=== PATIENT | female | born 1955 | race Caucasian/White ===

== ENCOUNTER → 2017-01-23 | Outpatient (CLI) | payer OTHER ==
[~2017-01-23] VITALS: Ht 165.1 cm; Wt 63.7 kg
[~2017-01-23] MED LIST: ALDACTONE 100M100 MG PO; LASIX 40MG TABL40 MG PO; NATURAL MAGNES200 MG PO; NATURAL POTASS595 MG PO; NATURE'S BLEND100 M2 PO; PHARMASSURE ZIN50 MG PO; THE MEDICINE S200 M2 PO; VITAMIN D31000 I1 PO
[2017-01-23 12:05] VITALS: BP 132/83; PULSE 103
[2017-01-23 14:03] LABS: PERITONEAL -POLYMORPHONUCLEAR 16.8 % (0-25); PERITONEAL FLUID RBC 0 /mm3 (0-0)
[2017-01-23 14:59] VITALS: BP 116/80; PULSE 100
== END ==
LOC: COL.RAD 11:28
PROVIDERS: Physician Assistant
DX: K74.60 Unspecified cirrhosis of liver (principal); R18.8 Other ascites
CPT/HCPCS: 19804

== ENCOUNTER → 2017-02-16 | Outpatient (CLI) | payer OTHER | LOC: MC.RAD 10:30 | DX: Z12.31 Encounter for screening mammogram for malignant neoplasm of breast (principal) ==

== ENCOUNTER → 2017-02-19 | Outpatient (CLI) | payer OTHER ==
[~2017-02-19] VITALS: Ht 165.1 cm; Wt 62.5 kg
[2017-02-19 09:06] VITALS: BP 121/93; PULSE 110
[2017-02-19 10:39] VITALS: BP 122/78; PULSE 98
[2017-02-19 11:31] LABS: PERITONEAL -POLYMORPHONUCLEAR 7.8 % (0-25); PERITONEAL FLUID RBC 1000 /mm3 (0-0)
== END ==
LOC: COL.RAD 08:50
PROVIDERS: Physician Assistant
DX: K74.60 Unspecified cirrhosis of liver (principal); R74.8 Abnormal levels of other serum enzymes; R18.8 Other ascites

== ENCOUNTER → 2018-04-14 | Outpatient (CLI) | payer OTHER | LOC: COL.RAD 09:25 | DX: K76.89 Other specified diseases of liver (principal); I85.00 Esophageal varices without bleeding; Z90.49 Acquired absence of other specified parts of digestive tract ==

== ENCOUNTER 2018-05-27 18:40 | Inpatient (IN) | payer OTHER ==
[2018-05-27] VITALS (59 sets, daily range): BP systolic 93–119; BP diastolic 53–80; PULSE 111–130; TEMP 99.6–99.7; O2SAT 81–100
[~2018-05-27] VITALS: Ht 162.6 cm; Wt 69.2 kg
[2018-05-27 19:18] LABS: BASO # 0.1 (0.0-0.2); BASO % 0.5 % (0.0-2.0); EOS % 0.1 % (0-4.0); GRAN # 12.8 (1.4-6.5); GRAN % 74.9 % (42.2-75.2); LYMPH # 1.9 (1.2-3.4); MEAN CELL VOLUME 80 fl (80.0-100.0); MEAN CORPUSCULAR HGB CONC 32 g/dl (33.0-37.0); MEAN PLATELET VOLUME 10.2 fl (7.4-10.4); MONO # 1.9 (0.1-0.6); MONO % 10.8 % (1.7-9.3); PLATELET COUNT 162 K/mm3 (130-400); RED BLOOD COUNT 2.92 M/mm3 (4.10-5.30); REDCELL DISTRIBUTION WIDTH-CV 21.3 % (11.5-14.5)
[2018-05-27 19:22] LABS: GASTROCCULT POSITIVE; pH GASTRIC CONTENTS 3
[2018-05-27 19:22] LABS: HEMATOCRIT 23.3 % (37.0-47.0); HEMOGLOBIN 7.5 g/dl (12.5-16.0); MEAN CORPUSCULAR HEMOGLOBIN 26 pg (27.0-31.0)
[2018-05-27 19:26] LABS: INR 1.3 (0.8-3.0); PROTHROMBIN TIME 14.4 SECONDS (9.7-12.8)
[2018-05-27 19:28] LABS: ALANINE AMINOTRANSFERASE 33 U/L (9-52); ALBUMIN 3.6 gm/dL (3.5-5.0); ALKALINE PHOSPHATASE 106 U/L (50-136); ANION GAP 13 mmol/L (7-16); AST,SGOT 91 U/L (15-37); BILIRUBIN,TOTAL 1.5 mg/dL (0.0-1.0); BLOOD UREA NITROGEN 37 mg/dL (7-17); CALCIUM 8.6 mg/dL (8.4-10.2); CARBON DIOXIDE 20 mmol/L (22-30); CHLORIDE 91 mmol/L (98-107); GLUCOSE 131 mg/dL (74-106); LIPASE 49 U/L (23-300); POTASSIUM 4.3 mmol/L (3.4-5.0); SODIUM 124 mmol/L (137-145); TOTAL PROTEIN 6.6 gm/dL (6.4-8.2)
[2018-05-27 19:45] LABS: TROPONIN-I < 0.012 ng/mL (0.000-0.035)
--- NOTE | 2018-05-27 21:16 | NUR ---
REPORT RECEIVED FROM JIE MONTILLA. PATIENT PREPARING TO GO TO OR FOR EGD
--- NOTE | 2018-05-27 22:00 | NUR ---
PATIENT ARRIVES FROM OR WITH ENDO TEAM. SHE IS DROWSY, BUT AROUSABLE TO SPEECH. SHE ALSO INTERMITTENTLY COUGHS AND CLUTCHES LEFT RIBCAGE WITH C/O PAIN WHILE COUGHING. PATIENT ALSO HAS SOME NAUSEA, EMESIS BAG NEAR PATIENT. WILL DISCUSS NAUSEA MEDS WITH HOSPITALIST. VS WNL. FLUIDS AND OCTREOTIDE GTT INFUSING AT PRESCRIBED RATE. WILL CONTINUE TO MONITOR.
[2018-05-27 22:32] LABS: HEMOGLOBIN 5.6 g/dl (12.5-16.0)
[2018-05-27 22:33] LABS: HEMATOCRIT 17.5 % (37.0-47.0)
[2018-05-27 22:38] LABS: CALCIUM 7.4 mg/dL (8.4-10.2); CREATININE, serum 0.67 mg/dL (0.52-1.25); MAGNESIUM 1.5 mg/dL (1.6-2.3); POTASSIUM 4.7 mmol/L (3.4-5.0)
--- NOTE | 2018-05-27 23:00 | NUR ---
ORDERS RECEIVED FOR 2 UNITS PRBC. MEDICATION WILL BE GIVEN TO NAUSEA. PATIENT CONTINUES TO COUGH AND CLUTCH LEFT RIB CAGE. REPOSITIONING OFFERED WELL EMOTIONAL SUPPORT. WILL CONTINUE TO MONITOR.
[2018-05-28] VITALS (933 sets, daily range): BP systolic 98–120; BP diastolic 51–74; PULSE 87–106; TEMP 97.6–99.2; O2SAT 72–100
--- NOTE | 2018-05-28 01:00 | NUR ---
PATIENT TOLERATING BLOOD TRANSFUSION WELL. CURRENTLY SHE SLEEPS AFTER RECEIVING PHENERGAN FOR NAUSEA. WILL CONTINUE TO MONITOR.
--- NOTE | 2018-05-28 02:30 | NUR ---
WE RETURN FROM CT AT THIS TIME. PATIENT RECEIVED CT HEAD. SHE BECAME VERY DIZZY WITH CHANGE IN POSITION FROM BED TO CT TABLE. SHE TOLERATED CT WELL, AND WAS DIZZY YET AGAIN WHEN TRANSITIONING BACK TO THE BED. WILL CONTINUE TO MONITOR.
--- NOTE | 2018-05-28 03:00 | NUR ---
PATIENT UNABLE TO VOID IN BEDPAN AT THIS TIME. CALL PLACED TO EILEEN BARBOSA. SHE GIVES ORDER FOR KING CATHETER SINCE PATIENT HAS STRICT ORDERS FOR BEDREST D/T HYPOTENSION AND DIZZINESS. KING CATHETER PLACED WITH OUT ISSUE. SPECIMEN SENT TO THE LAB. WILL CONTINUE TO MONITOR.
[2018-05-28 03:05] LABS: COLLECTION METHOD CLEAN CATCH
[2018-05-28 03:11] LABS: PH 5 (5-8); SQUAMOUS EPITHELIAL None Seen /hpf; URINE APPEARANCE Clear; URINE BACTERIA None Seen /hpf; URINE BILIRUBIN Negative (NEGATIVE); URINE BLOOD Negative (NEGATIVE); URINE COLOR Yellow; URINE GLUCOSE Negative (NEGATIVE); URINE KETONE Negative (NEGATIVE); URINE LEUKOCYTE ESTERASE Negative (NEGATIVE); URINE NITRATE Negative (NEGATIVE); URINE PROTEIN(semi-quant) Negative (NEGATIVE); URINE RBC 0-2 /hpf; URINE UROBILINOGEN Negative (NEGATIVE)
[2018-05-28 04:08] LABS: TRICYCLIC ANTIDEPRESS URINE NEGATIVE
[2018-05-28 06:49] LABS: MEAN CORPUSCULAR HGB CONC 33 g/dl (33.0-37.0); MEAN PLATELET VOLUME 10.4 fl (7.4-10.4); PLATELET COUNT 73 K/mm3 (130-400); RED BLOOD COUNT 3.04 M/mm3 (4.10-5.30); REDCELL DISTRIBUTION WIDTH-CV 19.6 % (11.5-14.5)
[2018-05-28 06:50] LABS: HEMATOCRIT 25.9 % (37.0-47.0); HEMOGLOBIN 8.5 g/dl (12.5-16.0); MEAN CELL VOLUME 85 fl (80.0-100.0); MEAN CORPUSCULAR HEMOGLOBIN 28 pg (27.0-31.0)
[2018-05-28 06:59] LABS: ALCOHOL(ethanol),MEDICAL < 10 mg/dL; ANION GAP 6 mmol/L (7-16); BLOOD UREA NITROGEN 34 mg/dL (7-17); CALCIUM 7.7 mg/dL (8.4-10.2); CARBON DIOXIDE 21 mmol/L (22-30); CHLORIDE 104 mmol/L (98-107); CREATININE, serum 0.71 mg/dL (0.52-1.25); GLUCOSE 123 mg/dL (74-106); POTASSIUM 4.5 mmol/L (3.4-5.0); SODIUM 131 mmol/L (137-145)
--- NOTE | 2018-05-28 07:36 | NUR ---
BEDSIDE REPORT GIVEN TO JIE DE PAZ
[2018-05-28 07:43] LABS: LYMPHOCYTE 18 % (20.0-51.0); MYELOCYTE 1 % (0-0); NEUTROPHILS 67 % (42.0-75.2); PLATELET ESTIMATE DECREASED (NORMAL)
[2018-05-28 07:46] LABS: ANISOCYTOSIS 1+
--- NOTE | 2018-05-28 08:00 | NUR ---
PT ORIENTED X4. PT HAPS FREQUENTLY BUT AROUSES TO VERBAL STIMULI. PT STATES SHE OVERALL DOES NOT FEEL WELL. PT C/O PAIN TO LEFT SHOULDER AND LEFT RIBS. PT HAVING INTERMITTENT BUT FREQUENT NAUSEA.
--- NOTE | 2018-05-28 09:54 | NUR ---
Initial visit; Patient thanked Pediatric Physical Therapist for offering prayer and keeping her in Pediatric Physical Therapist's prayers.
[2018-05-28 10:33] LABS: CALCIUM 7.8 mg/dL (8.4-10.2); CREATININE, serum 0.66 mg/dL (0.52-1.25); POTASSIUM 4.2 mmol/L (3.4-5.0)
[2018-05-28 10:40] LABS: HEMATOCRIT 25.7 % (37.0-47.0); HEMOGLOBIN 8.5 g/dl (12.5-16.0)
--- NOTE | 2018-05-28 13:44 | NUR ---
SW attended clinical rounds. Patient was very drowsy, so SW did not get to speak with her. Patient lives independently at home with her . Her PCP is Eli Goel and she obtains prescriptions from [facility]. There is no mention of DME or home health services used in the home. SW does not anticipate any needs upon discharge but will continue to follow.
[2018-05-28 14:30] LABS: HEMATOCRIT 25.8 % (37.0-47.0); HEMOGLOBIN 8.5 g/dl (12.5-16.0)
[2018-05-28 18:37] LABS: HEMATOCRIT 27.7 % (37.0-47.0); HEMOGLOBIN 9.1 g/dl (12.5-16.0)
[2018-05-28 18:47] LABS: CALCIUM 8.2 mg/dL (8.4-10.2); CREATININE, serum 0.6 mg/dL (0.52-1.25)
--- NOTE | 2018-05-28 19:20 | NUR ---
Bedside report recieved from JIE Galloway. Patient resting and requests ice water at this time which is provided. Octreocide gtt noted to run at 50ml/hr as ordered with MIVF infusing at 125ml/hr also as ordered both to uncomplicated RFA 18g peripheral IV site. Care assumed at this time.
--- NOTE | 2018-05-28 22:12 | NUR ---
Patient provided additional ice water per request. Denies further needs at this time. Bed remains in low and locked position, call light within reach, rails up x3, and bed alarm armed. Care ongoing.
[2018-05-28 22:31] LABS: ANION GAP 4 mmol/L (7-16); BLOOD UREA NITROGEN 17 mg/dL (7-17); CALCIUM 7.8 mg/dL (8.4-10.2); CARBON DIOXIDE 22 mmol/L (22-30); CHLORIDE 105 mmol/L (98-107); CREATININE, serum 0.63 mg/dL (0.52-1.25); GLUCOSE 98 mg/dL (74-106); HEMATOCRIT 24.3 % (37.0-47.0); HEMOGLOBIN 8.2 g/dl (12.5-16.0); POTASSIUM 3.8 mmol/L (3.4-5.0); SODIUM 131 mmol/L (137-145)
[2018-05-28 22:43] LABS: TROPONIN-I < 0.012 ng/mL (0.000-0.035)
[2018-05-29] VITALS (482 sets, daily range): BP systolic 96–147; BP diastolic 71–83; PULSE 89–101; TEMP 98.8–99.2; O2SAT 63–100
[2018-05-29 05:50] LABS: BASO % 1.1 % (0.0-2.0); EOS # 0.1 (0.0-0.7); EOS % 2.1 % (0-4.0); GRAN # 2.4 (1.4-6.5); GRAN % 64.8 % (42.2-75.2); LYMPH # 0.6 (1.2-3.4); LYMPH % 17.1 % (20.0-51.0); MEAN CELL VOLUME 86 fl (80.0-100.0); MEAN CORPUSCULAR HGB CONC 33 g/dl (33.0-37.0); MEAN PLATELET VOLUME 9.8 fl (7.4-10.4); MONO # 0.5 (0.1-0.6); MONO % 13.6 % (1.7-9.3); PLATELET COUNT 70 K/mm3 (130-400); RED BLOOD COUNT 2.71 M/mm3 (4.10-5.30)
[2018-05-29 05:54] LABS: HEMATOCRIT 23.3 % (37.0-47.0); HEMOGLOBIN 7.7 g/dl (12.5-16.0); MEAN CORPUSCULAR HEMOGLOBIN 28 pg (27.0-31.0)
[2018-05-29 06:03] LABS: CALCIUM 7.7 mg/dL (8.4-10.2); CREATININE, serum 0.56 mg/dL (0.52-1.25); MAGNESIUM 1.8 mg/dL (1.6-2.3); POTASSIUM 3.8 mmol/L (3.4-5.0)
--- NOTE | 2018-05-29 07:20 | NUR ---
Report provided to JIE Wright.
--- NOTE | 2018-05-29 07:20 | NUR ---
report recieved from Lor CERON. Patient sleeping in bed, IV medicaitons verified. Call light in reach.
--- NOTE | 2018-05-29 08:15 | NUR ---
Awakens easily for assessment and morning meds, takes without difficulty. Denies nausea, denies pain. Denies further needs at this time. Call light at side. Requests door shut so she can sleep a bit longer, done at this time.
[2018-05-29 14:09] LABS: MEAN CELL VOLUME 87 fl (80.0-100.0); MEAN CORPUSCULAR HGB CONC 33 g/dl (33.0-37.0); MEAN PLATELET VOLUME 9.3 fl (7.4-10.4); PLATELET COUNT 69 K/mm3 (130-400); RED BLOOD COUNT 2.82 M/mm3 (4.10-5.30)
[2018-05-29 14:11] LABS: HEMATOCRIT 24.5 % (37.0-47.0); MEAN CORPUSCULAR HEMOGLOBIN 28 pg (27.0-31.0)
--- NOTE | 2018-05-29 16:52 | NUR ---
REPORT RECEIVED FROM JIE SIDHU.PATIENT TO BE TRANSPORTED TO ROOM 316 SHORTLY.
--- NOTE | 2018-05-29 16:54 | NUR ---
Report called to Miguelina CERON. Will tranfer patient to room 316
--- NOTE | 2018-05-29 17:30 | NUR ---
To room 316 via wheelchair. Transferred with 1:1 assist, weak with transfer. Miguelina RN in room when arrives and helps transfer patient into bed.
--- NOTE | 2018-05-29 17:34 | NUR ---
Pt arrived to room 316.transfered to bed assist x1.IVF infusing.Pt a/ox4.c/o left shoulder pain.patient denies any concerns at this time.call light in reach
--- NOTE | 2018-05-29 18:25 | NUR ---
patient resting in bed at this time.denies N/V.IVF infusing.remains on detox protocol.Scoring 2-3.c/o left shoulder pain.Mckeon catheter in place and draining adequately.remains on clear liquid diet.denies any needs at this time.will continue to monitor.call light in reach
[2018-05-30] VITALS (7 sets, daily range): BP systolic 101–122; BP diastolic 66–79; PULSE 89–101; TEMP 97.8–99.5
--- NOTE | 2018-05-30 02:43 | NUR ---
Pt resting in bed, has C/O pain of 10, gave Pt PRN pain medication for relief. Shift assessments complete, left Pt call light in reach, bed in lowest position.
--- NOTE | 2018-05-30 05:20 | NUR ---
Pt slept during the night, she had some C/O pain, leyva is draining well, VS have been stable.
--- NOTE | 2018-05-30 08:02 | NUR ---
Assessment complete.patient awake,a/ox4.LSCTA.c/o left shoulder pain.prn fentanyl given.no bloody stools reported.denies n/v.pt states she is ready to advance diet.IVF infusing.pt on CIWA protocol and scoring 2-3.Mckeon catheter in place and draining adequately.denies any needs at this time.call light in reach
[2018-05-30 08:46] LABS: MEAN CELL VOLUME 88 fl (80.0-100.0); MEAN CORPUSCULAR HGB CONC 33 g/dl (33.0-37.0); MEAN PLATELET VOLUME 9.3 fl (7.4-10.4); PLATELET COUNT 72 K/mm3 (130-400); RED BLOOD COUNT 2.83 M/mm3 (4.10-5.30)
[2018-05-30 08:56] LABS: HEMATOCRIT 24.9 % (37.0-47.0); HEMOGLOBIN 8.1 g/dl (12.5-16.0); MEAN CORPUSCULAR HEMOGLOBIN 29 pg (27.0-31.0)
[2018-05-30 09:05] LABS: CALCIUM 7.9 mg/dL (8.4-10.2); CREATININE, serum 0.6 mg/dL (0.52-1.25); MAGNESIUM 1.5 mg/dL (1.6-2.3); POTASSIUM 3.8 mmol/L (3.4-5.0)
[2018-05-30 10:14] LABS: ANISOCYTOSIS 1+; BASOPHIL 1 % (0-2); EOSINOPHIL 2 % (0-4); HYPOCHROMIA 1+; LYMPHOCYTE 18 % (20.0-51.0); NEUTROPHILS 74 % (42.0-75.2); PLATELET ESTIMATE DECREASED (NORMAL); POLYCHROMASIA 1+
--- NOTE | 2018-05-30 18:41 | NUR ---
report given to JIE Frankel
--- NOTE | 2018-05-30 20:36 | NUR ---
Pt resting in bed watching TV, no C/O pain, shift assessments complete, left Pt call light in reach, bed in lowest position.
[2018-05-31 04:17] VITALS: BP 114/71; PULSE 89; TEMP 98.4
--- NOTE | 2018-05-31 05:19 | NUR ---
Pt slept well during the night, she did have some C/O pain late in the shift where the lidocaine pataches were removed from at bedtime, Vs have remained stable during the shift.
[2018-05-31 06:02] LABS: BASO % 0.7 % (0.0-2.0); EOS # 0.1 (0.0-0.7); EOS % 1.9 % (0-4.0); GRAN # 2.5 (1.4-6.5); GRAN % 58.7 % (42.2-75.2); LYMPH # 0.8 (1.2-3.4); MEAN CELL VOLUME 88 fl (80.0-100.0); MEAN CORPUSCULAR HGB CONC 32 g/dl (33.0-37.0); MEAN PLATELET VOLUME 9.7 fl (7.4-10.4); MONO # 0.8 (0.1-0.6); MONO % 18.3 % (1.7-9.3); PLATELET COUNT 85 K/mm3 (130-400); RED BLOOD COUNT 2.86 M/mm3 (4.10-5.30); REDCELL DISTRIBUTION WIDTH-CV 21.2 % (11.5-14.5)
[2018-05-31 06:03] LABS: HEMATOCRIT 25.1 % (37.0-47.0); HEMOGLOBIN 8.1 g/dl (12.5-16.0); MEAN CORPUSCULAR HEMOGLOBIN 28 pg (27.0-31.0)
[2018-05-31 06:21] LABS: ALBUMIN 2.5 gm/dL (3.5-5.0); BILIRUBIN,TOTAL 0.7 mg/dL (0.0-1.0); CALCIUM 8.1 mg/dL (8.4-10.2); CREATININE, serum 0.64 mg/dL (0.52-1.25); MAGNESIUM 1.5 mg/dL (1.6-2.3); TOTAL PROTEIN 5.2 gm/dL (6.4-8.2)
[2018-05-31 07:20] VITALS: BP 114/72; PULSE 85; TEMP 98.6
--- NOTE | 2018-05-31 09:30 | NUR ---
PT is A+Ox3, pleasant, c/o pain to lt shoulder adn lt ribcage when she moves. lidocaine patches applied per orders. physical assessment completed. Mckeon is gravity draining clear yellow urine. Both INT's free of redness and swelling at site. No tremors or signs of etoh detox. no further needs, call light in reach.
[2018-05-31 11:15] VITALS: BP 108/62; PULSE 89; TEMP 98.9
[2018-05-31] MEDS ORDERED: FERROUS SU325 MG/TAB PO (14:43)
[2018-05-31] MEDS ORDERED: FOLIC ACID 11 MG/TA1 PO (14:44)
[2018-05-31] MEDS ORDERED: THIAMINE 1100 MG/TAB PO (14:44)
[2018-05-31] MEDS ORDERED: PROTONIX 40MG T40 MG PO (14:45)
[2018-05-31] MEDS ORDERED: MULTIPLE VITAMI1 CAP PO (14:45)
[2018-05-31] MEDS ORDERED: MAG-OX 400400 MG/TAB PO (14:50)
[2018-05-31] MEDS ORDERED: Lidocaine 4% Patch TP (14:50)
--- NOTE | 2018-05-31 15:20 | NUR ---
SW met with the patient to discuss PT's recommendation of a FWW. The patient reports that she is not interested in getting a walker at this time. She states that if she needs assistance with walking that she can get a cane. The patient is to discharge back home today, 05/31. No additional needs at this time.
[2018-05-31 17:09] VITALS: BP 118/64; PULSE 95; TEMP 97.3
--- NOTE | 2018-05-31 18:00 | NUR ---
tHROUGH shift pt remained A+Ox3, vitals stable, denies SOB, did c/o sudden sharp pain to lt shoudler and ribcage iwth certain movements but stated the lidocaine patches helped. Denied blood in stools or from lungs. Pt denied dizziness. Discharge instrutions reviewed and all questions answered. Mckeon removed, pt tolerated well, education provided on calling PCP if unable to void by tomorrow morning. Both INT's removed with tips intact, sites free of redness and swelling. Personal belongings collected and pt escorted out.
== END 2018-05-31 19:37 | disposition home or self-care (01) | DRG 432 ==
LOC: COL.ER 18:40 → ICU 20:18 → MEDICAL 05-29 17:25
PROVIDERS: Emergency Medicine; Family Medicine; Internal Medicine Gastroenterology; Nurse Practitioner Family; Physician Assistant; ADMIT Internal Medicine
PROC: 06L38CZ Occlusion of Esophageal Vein with Extraluminal Device, Via Natural or Artificial Opening Endoscopic (ICD-10-PCS; principal; 2018-05-27 21:00)
DX: K70.30 Alcoholic cirrhosis of liver without ascites (principal); I85.11 Secondary esophageal varices with bleeding; D62 Acute posthemorrhagic anemia; E87.2 Acidosis; E87.1 Hypo-osmolality and hyponatremia; F10.20 Alcohol dependence, uncomplicated
CPT/HCPCS: 99223-AI; 99232-AI; 99239; C9113; J2060; J2354; J2370; J2405; J2543; J2550; J2704; J3010; J3411; J3475; J3480; J7030; J7040; P9016

== ENCOUNTER → 2019-05-09 | Outpatient (CLI) | payer OTHER ==
[~2019-05-09] VITALS: Ht 162.6 cm; Wt 57.7 kg
[~2019-05-09] MED LIST changes: +FERROUS SU325 MG/TAB PO; +FOLIC ACID 11 MG/TA1 PO; +Lidocaine 4% Patch TP; +MAG-OX 400400 MG/TAB PO; +MULTIPLE VITAMI1 CAP PO; +PROBIOTIC FORMU1 CAP PO; +PROTONIX 40MG T40 MG PO; +THIAMINE 1100 MG/TAB PO
[2019-05-09 10:19] VITALS: BP 122/84; PULSE 99
--- NOTE | 2019-05-09 10:51 | NUR ---
Pt returns from ultrasound. No fluid to drain for paracentesis. Pt out to car ambulatory.
== END ==
LOC: COL.RAD 09:55
DX: K74.60 Unspecified cirrhosis of liver (principal); Z90.49 Acquired absence of other specified parts of digestive tract

== ENCOUNTER → 2019-08-17 | Outpatient (CLI) | payer OTHER ==
[2019-08-17 11:18] LABS: ALBUMIN 4.6 gm/dL (3.5-5.0); BILIRUBIN,TOTAL 0.7 mg/dL (0.0-1.0); CALCIUM 9.6 mg/dL (8.4-10.2); CREATININE, serum 0.68 (0.52-1.25); POTASSIUM 3.5 mmol/L (3.4-5.0); TOTAL PROTEIN 8.2 gm/dL (6.4-8.2)
== END ==
LOC: COL.LAB 10:31
PROVIDERS: Physician Assistant
DX: K74.60 Unspecified cirrhosis of liver (principal); I85.00 Esophageal varices without bleeding; R18.8 Other ascites

== ENCOUNTER → 2019-12-20 | Outpatient (CLI) | payer OTHER | LOC: COL.RAD 07:29 | DX: K74.60 Unspecified cirrhosis of liver (principal); I85.00 Esophageal varices without bleeding; K76.6 Portal hypertension ==

== ENCOUNTER 2020-08-17 09:49 | Day surgery (SDC) | payer OTHER ==
[2020-08-17] VITALS (7 sets, daily range): BP systolic 102–111; BP diastolic 62–82; PULSE 90–105; TEMP 97.6–98.1
[~2020-08-17] VITALS: Ht 160 cm; Wt 58.4 kg
--- NOTE | 2020-08-17 12:55 | NUR ---
Patient brought back to [facility] via cart. Ambulated to chair without difficulty. Report recieved from Smita CERON, all questions answered. IV continues to infuse into right forearm. Vital signs stable. Patient denies pain or nausea. Requests soda and toast. Call layton within reach. Will continue to monitor.
--- NOTE | 2020-08-17 13:10 | NUR ---
Tolerating food and drink without difficulty. States she feels well. Will continue to monitor.
--- NOTE | 2020-08-17 14:55 | NUR ---
Dismissal instructions gone over with patient. Patient voices understanding and all questions answered.
--- NOTE | 2020-08-17 15:40 | NUR ---
Patient sitting comfortably in chair waiting for her to pick her up.
--- NOTE | 2020-08-17 16:20 | NUR ---
Patient discharged to private vehicle at patient enterance via wheelchair without any complications. Patient and family leave thanking staff for services.
== END 2020-08-17 16:20 | disposition home or self-care (01) ==
LOC: SDCO 09:49
DX: K74.60 Unspecified cirrhosis of liver (principal); I85.10 Secondary esophageal varices without bleeding; K29.30 Chronic superficial gastritis without bleeding; K29.80 Duodenitis without bleeding; I10 Essential (primary) hypertension; E78.00 Pure hypercholesterolemia, unspecified; K76.6 Portal hypertension; I25.2 Old myocardial infarction; I25.10 Atherosclerotic heart disease of native coronary artery without angina pectoris; J45.909 Unspecified asthma, uncomplicated; Z88.5 Allergy status to narcotic agent; Z88.8 Allergy status to other drugs, medicaments and biological substances; U07.1 COVID-19
CPT/HCPCS: J2704

== ENCOUNTER 2020-09-12 14:31 | Emergency (ER) | payer OTHER ==
[~2020-09-12] VITALS: Ht 165.1 cm; Wt 56.8 kg
[2020-09-12 14:55] VITALS: TEMP 98.1
[2020-09-12 16:10] LABS: BASO # 0.1 (0.0-0.2); BASO % 0.8 % (0.0-2.0); EOS # 0.1 (0.0-0.7); EOS % 0.6 % (0-4.0); GRAN # 6.7 (1.4-6.5); HEMOGLOBIN 11.8 g/dl (12.5-16.0); LYMPH # 0.7 (1.2-3.4); LYMPH % 7.7 % (20.0-51.0); MEAN CELL VOLUME 99 fl (80.0-100.0); MEAN CORPUSCULAR HEMOGLOBIN 34 pg (27.0-31.0); MEAN CORPUSCULAR HGB CONC 34 g/dl (33.0-37.0); MEAN PLATELET VOLUME 9.1 fl (7.4-10.4); MONO # 1.2 (0.1-0.6); MONO % 14.1 % (1.7-9.3); PLATELET COUNT 182 K/mm3 (130-400); RED BLOOD COUNT 3.52 M/mm3 (4.10-5.30); REDCELL DISTRIBUTION WIDTH-CV 14.6 % (11.5-14.5)
[2020-09-12 16:18] LABS: HEMATOCRIT 34.7 % (37.0-47.0)
[2020-09-12 16:21] LABS: ALBUMIN 3.3 gm/dL (3.5-5.0); BILIRUBIN,TOTAL 8.4 mg/dL (0.0-1.0); CALCIUM 8.4 mg/dL (8.4-10.2); CREATININE, serum 0.61 (0.52-1.25); POTASSIUM 3.5 mmol/L (3.4-5.0); TOTAL PROTEIN 7.9 gm/dL (6.4-8.2)
[2020-09-12 16:28] LABS: INR 1.4 (0.8-3.0); PROTHROMBIN TIME 15.9 SECONDS (9.7-12.8)
[2020-09-12 17:43] LABS: MUCOUS Present /lpf; PH 5 (5-8); URINE APPEARANCE Hazy; URINE BACTERIA Moderate /hpf; URINE BILIRUBIN Negative (NEGATIVE); URINE BLOOD Negative (NEGATIVE); URINE COLOR Yellow; URINE GLUCOSE Negative (NEGATIVE); URINE KETONE Negative (NEGATIVE); URINE LEUKOCYTE ESTERASE Negative (NEGATIVE); URINE NITRATE Negative (NEGATIVE); URINE PROTEIN(semi-quant) Negative (NEGATIVE); URINE RBC None Seen /hpf; URINE UROBILINOGEN Negative (NEGATIVE)
[2020-09-12 17:45] LABS: SQUAMOUS EPITHELIAL 0-2 /hpf
[2020-09-12 19:01] LABS: COLLECTION METHOD CLEAN CATCH
[2020-09-12 22:00] VITALS: BP 107/59; PULSE 105
== END 2020-09-12 22:03 | disposition short-term general hospital (02) ==
LOC: COL.ER 14:31
PROVIDERS: Nurse Practitioner Primary Care
DX: K72.90 Hepatic failure, unspecified without coma (principal); E87.1 Hypo-osmolality and hyponatremia
CPT/HCPCS: Q9967

== ENCOUNTER → 2022-01-08 | Outpatient (CLI) | payer MEDICARE | LOC: COL.RAD 11:48 | DX: K70.30 Alcoholic cirrhosis of liver without ascites (principal); R16.1 Splenomegaly, not elsewhere classified ==

== ENCOUNTER 2022-01-17 07:29 | Day surgery (SDC) | payer MEDICARE ==
[~2022-01-17] VITALS: Ht 165.1 cm; Wt 51.8 kg
[2022-01-17 09:20] VITALS: BP 95/39; PULSE 86; TEMP 97.9
--- NOTE | 2022-01-17 09:28 | NUR ---
0920 - PT arrives and was settled by Dionne CERON. Written report obtained w/o vitals. PT provided snack and drink; denies pain/nausea. Non-slip socks are on and call layton is within reach if needed. Visitor is present
[2022-01-17 09:35] VITALS: BP 103/64; PULSE 90
--- NOTE | 2022-01-17 09:49 | NUR ---
0935 - VSS. PT has finished snack and drink; denies pain/nausea and expressed desire to be discharged. Call layton remains within reach and visitor remains present.
[2022-01-17 09:50] VITALS: BP 114/65; PULSE 93
--- NOTE | 2022-01-17 09:55 | NUR ---
0950 - S. Awaiting to speak w/ PT. Call layton remains within reach. 0955 - is speaking w/ PT.
--- NOTE | 2022-01-17 10:04 | NUR ---
1000 - IV discontinued. Catheter tip intact and pressure bandage applied. NO redness or swelling noted. DC instructions and educational material reviewed w/ PT who verbalized understanding and signed the related paperwork. Questions answered to PT satisfaction. Visitor left to pull car to PT entrence; PT refused RN assistance changing into personal clothes. Non-slip socks remain on and call layton is within reach if needed.
--- NOTE | 2022-01-17 10:15 | NUR ---
1010 - PT dismissed from endo via wheelchair to the PT entrence by Lizeth CERON. PT has DC packet and personal belongings and was transferred into the care of her , who is driving private truck.
[2022-01-17 14:31] VITALS: BP 108/84; PULSE 88; TEMP 97.1
== END 2022-01-17 10:15 | disposition home or self-care (01) ==
LOC: SDCO 07:29
DX: K29.30 Chronic superficial gastritis without bleeding (principal); K70.31 Alcoholic cirrhosis of liver with ascites; I85.10 Secondary esophageal varices without bleeding; K76.6 Portal hypertension; K72.90 Hepatic failure, unspecified without coma
CPT/HCPCS: J2704; J7030

== ENCOUNTER → 2022-06-05 | Outpatient (CLI) | payer MEDICARE ==
[~2022-06-05] VITALS: Ht 165.1 cm; Wt 62.8 kg
[2022-06-05 09:18] VITALS: BP 111/78; PULSE 104; TEMP 97.9
[2022-06-05 10:50] VITALS: BP 110/74; PULSE 91
== END ==
LOC: COL.RAD 09:05
DX: K70.31 Alcoholic cirrhosis of liver with ascites (principal); I85.10 Secondary esophageal varices without bleeding
CPT/HCPCS: 19804

== ENCOUNTER → 2022-07-24 | Outpatient (CLI) | payer MEDICARE ==
[~2022-07-24] VITALS: Ht 165.1 cm; Wt 64.9 kg
[2022-07-24 07:49] VITALS: BP 116/80; PULSE 105; TEMP 97.5
[2022-07-24 09:00] VITALS: BP 98/63; PULSE 89
== END ==
LOC: COL.RAD 07:25
DX: K70.31 Alcoholic cirrhosis of liver with ascites (principal)
CPT/HCPCS: 19804

== ENCOUNTER 2023-11-18 03:18 | Emergency (ER) | payer MEDICARE ==
[~2023-11-18] VITALS: Ht 165.1 cm; Wt 52.0 kg
[~2023-11-18 03:18] MED LIST changes: +TYLENOL 500MG500 MG PO
[2023-11-18 03:25] VITALS: TEMP 98.5
[2023-11-18] MEDS ORDERED: Ondansetron 4 MG/2 ML VIAL IV ONE (03:45)
[2023-11-18 03:52] LABS: BASO % 0.4 % (0.0-2.0); EOS # 0.1 K/mm3 (0.0-0.7); EOS % 0.9 % (0.0-4.0); GRAN # 8.4 K/mm3 (1.4-6.5); GRAN % 82.3 % (42.2-75.2); HEMOGLOBIN 10.9 g/dl (12.5-16.0); LYMPH # 0.3 K/mm3 (1.2-3.4); LYMPH % 2.7 % (20.0-51.0); MEAN CELL VOLUME 93 fl (80.0-100.0); MEAN CORPUSCULAR HEMOGLOBIN 34 pg (27-31); MEAN CORPUSCULAR HGB CONC 37 g/dl (33.0-37.0); MONO # 1.3 K/mm3 (0.1-0.6); MONO % 12.6 % (1.7-9.3); PLATELET COUNT 111 K/mm3 (130-400); RED BLOOD COUNT 3.23 M/mm3 (4.10-5.30); REDCELL DISTRIBUTION WIDTH-CV 12.6 % (11.5-14.5)
[2023-11-18 03:56] LABS: INR 1.3 (0.8-3.0); PROTHROMBIN TIME 14.5 SECONDS (9.7-12.8)
[2023-11-18 03:58] LABS: HEMATOCRIT 29.9 % (37.0-47.0)
[2023-11-18] MEDS ORDERED: Iohexol 300 - 100 ML VIAL IV ONE (04:07)
[2023-11-18] MEDS ORDERED: NS 100 ML IV SCH (04:07)
[2023-11-18 04:15] LABS: ALBUMIN 3.1 g/dL (3.4-4.8); BILIRUBIN,TOTAL 4.3 mg/dL (0.2-1.2); CALCIUM 9.4 mg/dL (8.4-10.2); CREATININE, serum 0.85 mg/dL (0.57-1.11); POTASSIUM 3.6 mEq/L (3.5-4.5); TOTAL PROTEIN 6.9 g/dl (6.2-8.1)
[2023-11-18] MEDS ORDERED: NS 500 ML IV ONE (04:45)
[2023-11-18 04:47] LABS: COLLECTION METHOD CLEAN CATCH
[2023-11-18 04:55] LABS: URINE APPEARANCE CLEAR (CLEAR/HAZY); URINE BLOOD NEGATIVE (NEGATIVE); URINE GLUCOSE NEGATIVE (NEGATIVE); URINE KETONE NEGATIVE (NEGATIVE); URINE NITRATE NEGATIVE (NEGATIVE); URINE PROTEIN(semi-quant) NEGATIVE (NEGATIVE)
[2023-11-18 05:01] LABS: URINE COLOR Yellow (YELLOW)
[2023-11-18 07:45] VITALS: BP 105/61; PULSE 105
== END 2023-11-18 07:45 | disposition short-term general hospital (02) ==
LOC: COL.ER 03:18
PROVIDERS: Emergency Medicine
DX: S42.032A Displaced fracture of lateral end of left clavicle, initial encounter for closed fracture (principal); S22.5XXA Flail chest, initial encounter for closed fracture; S00.03XA Contusion of scalp, initial encounter; S30.1XXA Contusion of abdominal wall, initial encounter; S50.312A Abrasion of left elbow, initial encounter; E87.1 Hypo-osmolality and hyponatremia; R55 Syncope and collapse; W18.30XA Fall on same level, unspecified, initial encounter; W22.8XXA Striking against or struck by other objects, initial encounter
CPT/HCPCS: J2405; J7040; Q9967